=== PATIENT | female | born 1995 | race Two or more races ===

== ENCOUNTER 2023-08-28 16:34 | Emergency (ER) | payer OTHER | END 2023-08-28 20:08 | disposition home or self-care (01) | LOC: ER 16:35 | DX: S01.82XA Laceration with foreign body of other part of head, initial encounter (principal); V00.831A Fall from motorized mobility scooter, initial encounter; Y93.I9 Activity, other involving external motion; Y92.413 State road as the place of occurrence of the external cause ==